=== PATIENT | male | born 2000 ===

== ENCOUNTER 2025-05-19 09:56 | Outpatient (AMB) | payer MEDICARE, MEDICAID, SELFPAY ==
--- NOTE | 2025-05-19 10:14 | A.PHYSOV_ITS ---
Vital Signs 05/19/25 10:15 Height 5 ft 3 in Weight 199 lb BMI 35.2 Intake Visit Reasons: 4M FUV Intake Note: Patient is a 25 year old male here for follow up for thoracic and lumbar back pain. Patient states he is here to follow up on an abnormal MRI. Change Agent Required: No HPI Comments Details: Mr. Stevens is a 25-year-old male seen in evaluation today for low back pain. Patient is disabled secondary to anxiety and depression. Patient reports chronic low back pain. We have MRI of the thoracic spine 2021 which does show a disc bulge from T2-T5. We also have MRI of his lumbar spine which is normal. Patient did have x-ray of his pelvis which does confirm 1.3 X 0.9 cm sclerotic lesion in the medial aspect of the left iliac wing felt likely to be benign. Most likely a bone island. Patient wanted to consider re-x-ray that area but it is a little early. He has a pain level today at 4/10. He has been using ibuprofen and baclofen with mild relief. We did have significant discussion about lifestyle changes as he plays a lot of video games typically leads a sedentary lifestyle. [facility] Social History Alcohol intake: current Alcohol intake frequency: does not drink Patient Tobacco Use Status: Never used Tobacco Use of substances other than those prescribed or required for medical reasons: No Current occupational status: unemployed Review of Systems Narrative Low back pain, no incontinence, saddle anesthesia urinary retention. Physical Exam Exam Exam: Lumbar Spine: Examination of his lumbar spine, he is tender to lower lumbar facets. He is otherwise nontender. Has full range of motion of his lumbar spine. Increasing pain with loading. Special Tests: Lhermittes sign was negative Heel Toe walk is normal Left straight leg raise: Negative Right straight leg raise: Negative Special tests Wily test is negative Ganslen's test is negative SI Joint compression test negative Tammi test negative Piriformis stretch is negative Lower Extremities: Full range of motion bilateral lower extremities. No calf pain. Neuro: Sensation: Intact to lower extremities bilaterally Strength L2 (Psoas): 5/5 on the left and 5/5 on the right. L3 (Quads): 5/5 on the left and 5/5 on the right. L4 (Ant tibialis): 5/5 on the left and 5/5 on the right. L5 (EHL) 5/5 on the left and 5/5 on the right. S1 (Gastroc): 5/5 on the left and 5/5 on the right. DTR L4: (Patellar) Left 2 Right 2 S1: (Achilles) Left 2 Right 2 Babinski Downgoing No pathologic clonus. No involuntary movement. Vital Signs: BMI result Body Mass Index 35.2 Assessment & Plan Assessment & Plan (1) Low back pain: Code(s): M54.50 - Low back pain, unspecified Category: Medical Qualifiers: Chronicity: chronic Back pain laterality: midline Sciatica presence: without sciatica Qualified Code(s): M54.50 - Low back pain, unspecified; G89.29 - Other chronic pain (2) Spondylosis: Code(s): M47.9 - Spondylosis, unspecified Category: Medical (3) Lesion of pelvic bone: Code(s): M89.9 - Disorder of bone, unspecified Category: Medical Plan Mr. Stevens is a 25-year-old male seen in evaluation today for low back pain. The symptoms are improving with anti-inflammatories or baclofen. I recommended continuing those medications as needed. Another x-ray of his pelvis 2 months for further evaluation for potential sclerotic lesion that is likely benign. Patient will contact our office and we will order an x-ray performed. I r ecommend increasing his activity level video games. We discussed the benefits of proper nutrition and exercise to maintain a healthy body weight to improve longevity and function. We also discussed the benefits of proper lifting techniques, core strengthening and proper posture. Insert thank give Coding Level of Care Code Tele Est Pt Level 3 (62402) Diagnoses Chronic midline low back pain without sciatica M54.50; G89.29 Chronicity: chronic Back pain laterality: midline Sciatica presence: without sciatica Spondylosis M47.9 Lesion of pelvic bone M89.9
[2025-05-19 10:15] VITALS: BMI 35.2
== END 2025-05-19 11:08 | disposition home or self-care (01) ==
LOC: HO.HPHYS 09:56
PROVIDERS: PCP Student in an Organized Health Care Education/Training Program; Visit Provider Physician Assistant
DX: M54.50 Low back pain, unspecified (principal); G89.29 Other chronic pain; M47.9 Spondylosis, unspecified; M89.9 Disorder of bone, unspecified
CPT/HCPCS: 99213

== ENCOUNTER → 2025-05-19 09:56 | Outpatient (BNVA) | payer MEDICARE, MEDICAID, SELFPAY | PROVIDERS: PCP Student in an Organized Health Care Education/Training Program; Visit Provider Physician Assistant | DX: M54.50 Low back pain, unspecified (principal); G89.29 Other chronic pain; M47.9 Spondylosis, unspecified; M89.9 Disorder of bone, unspecified | CPT/HCPCS: 99212 ==